=== PATIENT | male | born 2005 | race Caucasian/White ===

== ENCOUNTER 2024-09-30 09:51 | Outpatient (CLI) | payer OTHER, SELFPAY ==
[2024-09-30 14:39] LABS: Add Urine Microscopic? YES; Appearance Urine Clear (Clear); Bacteria Urine None Seen /hpf; Bilirubin Urine Negative (Negative); Blood Urine 3+ (Negative); Color Urine Yellow (Yellow); Glucose Urine UA Negative (Negative); Ketones Urine Negative (Negative); Leukocyte Esterase Ur Trace LEU/UL (Negative); Nitrate Urine Negative (Negative); Non Pathogenic Casts 0-2; Protein Urine Negative (Negative); RBC Urine >100 /hpf (0-2); Specific Grav Ur 1.011 (1.001-1.035); Squamous Epithelial Cell Urine None Seen /hpf (Few); Urobilinogen Urine 0.2 mg/dL (<2.0); WBC Urine 0-5 /hpf (0-3)
== END 2024-09-30 09:52 | disposition home or self-care (01) ==
LOC: ANHGOSHLAB 10:00
DX: N20.1 Calculus of ureter (principal)
CPT/HCPCS: 81001; 87086